=== PATIENT | male | born 1970 | race Caucasian/White ===

== ENCOUNTER → 2020-06-19 13:55 | Outpatient (BNVA) | payer MEDICAID, SELFPAY | PROVIDERS: PCP Family Medicine; Referring Provider Family Medicine; Visit Provider Nurse Practitioner Family | DX: Z01.818 Encounter for other preprocedural examination (principal) | CPT/HCPCS: 99203 ==

== ENCOUNTER 2020-06-20 09:42 | Outpatient (REF) | payer MEDICAID, SELFPAY ==
--- NOTE | 2020-06-20 09:45 | MR_ITS ---
MR LUMBAR SPINE WITHOUT CONTRAST CLINICAL INFORMATION: Dorsalgia. COMPARISON: Lumbar spine radiographs 03/12/2020. TECHNIQUE: MRI of the lumbar spine was obtained using routine sequences without contrast. FINDINGS: This is a limited motion degraded MRI of the lumbar spine. Axial imaging is partially nondiagnostic given the degree of motion artifact. There are 5 nonrib-bearing lumbar-type vertebral bodies. Lumbar alignment is normal. The vertebral body heights are maintained. There is mild disc volume loss and there is disc desiccation at L4-L5. There is no bone marrow edema. There are no acute fractures. Conus terminates at the L1 level. There are no significant soft tissue findings. The L1-L2, L2-L3, L3-L4 disc contours appear normal on the sagittal series. No central canal stenosis and no foraminal stenosis at these levels. L4-L5: There is a diffuse annular disc bulge exhibiting a dorsal annular fissure that mildly narrows the central canal. Moderate bilateral facet arthropathy. Mild foraminal encroachment bilaterally. L5-S1: Small annular disc bulge and mild bilateral facet arthropathy. No central canal stenosis and no foraminal stenosis. IMPRESSION: Mild lumbar spondylosis. There is a dorsal annular fissure at L4-L5. Assessment is very limited by the degree of motion artifact. No severe central canal stenosis and no severe foraminal stenosis within the lumbar spine.
== END 2020-06-20 09:43 | disposition home or self-care (01) ==
LOC: HO.MRI 09:42
PROVIDERS: PCP Family Medicine; Visit Provider Family Medicine
DX: M54.9 Dorsalgia, unspecified (principal)
CPT/HCPCS: 72148

== ENCOUNTER → 2021-04-09 10:11 | Outpatient (REF) | payer MEDICAID, SELFPAY ==
--- NOTE | ~2021-04-09 | NM_ITS ---
EXAMINATION: THYROID UPTAKE AND SCAN CLINICAL INFORMATION: Thyrotoxicosis, new history. COMPARISON: No previous thyroid imaging studies are available for comparison. TECHNIQUE: Following the oral administration of 272 microcuries of I-123 sodium iodide, thyroid uptake was performed and expressed as a percentage of the administrated dose. Gamma scintillation camera images of the thyroid in the anterior and right and left anterior oblique views were obtained using a pinhole collimator following the administration of 10 mCi Tc-99m pertechnetate. FINDINGS: The uptake is 67.4% at 2 hours and 73.7% at 24 hours (Normal radioiodine uptake at 24 hours is 10% to 30%). The radioiodine uptake is markedly elevated. The radiopertechnetate thyroid scintigram shows the thyroid gland to be moderately enlarged, approximately 3-4 times normal in size. There is very homogeneous distribution of activity within the gland. The trapping function is markedly increased diffusely. A very faint pyramidal lobe is visualized in attaching to the mid right lobe. No focal abnormalities are noted. A single anterior radioiodine image obtained at the time of the 24-hour uptake measurement is similar to the radio pertechnetate image. NM/NM thyroid w uptake IMPRESSION: Moderately enlarged diffuse toxic goiter of Graves' disease. Markedly elevated radioiodine uptake. No nodules are visualized.
== END ==
LOC: HO.NUCMED 10:11
PROVIDERS: PCP Family Medicine; Visit Provider Family Medicine
DX: E05.90 Thyrotoxicosis, unspecified without thyrotoxic crisis or storm (principal)
CPT/HCPCS: 78014; A9516

== ENCOUNTER 2021-06-16 15:36 | Outpatient (REF) | payer MEDICAID, SELFPAY | END 2021-06-16 15:37 | disposition home or self-care (01) | LOC: HO.LAB 15:36 | PROVIDERS: Visit Provider Internal Medicine | DX: Z20.822 Contact with and (suspected) exposure to COVID-19 (principal) | CPT/HCPCS: C9803; U0003; U0005 ==

== ENCOUNTER 2022-01-12 21:30 | Emergency (ER) | payer MEDICAID, SELFPAY ==
--- NOTE | 2022-01-12 | ECG_ITS ---
Test Reason : CHEST PAIN Blood Pressure : / mmHG Vent. Rate : 056 BPM Atrial Rate : 056 BPM P-R Int : 144 ms QRS Dur : 082 ms QT Int : 416 ms P-R-T Axes : 057 -13 036 degrees QTc Int : 401 ms Sinus bradycardia with sinus arrhythmia Otherwise normal ECG No previous ECGs available Referred By: Generic ED Physician Electronically Signed By:TIM SRIVASTAVA MD
[2022-01-12 21:54] VITALS: BP 171/84; PULSE 61; RESP 16; TEMP 36.6; O2SAT 97; BMI 23.0
[2022-01-12 23:14] LABS: MANUAL DIFF FLAG NO
[2022-01-12 23:16] LABS: Basophils Absolute Auto 0.1 X10*3/uL (0.0-0.2); Basophils Percent Auto 0.7 % (0-2); Eosinophils Absolute Auto 0.3 X10*3/uL (0.0-0.4); Eosinophils Percent Auto 2.2 % (0-4); Hematocrit 45.9 % (42.0-52.0); Imm Gran Abs Auto 0.03 X10*3/uL (0.00-0.03); Imm Gran Pct Auto 0.3 % (0.0-0.4); Lymphocytes Absolute Auto 3.4 X10*3/uL (1.2-4.9); Lymphocytes Percent Auto 29.7 % (20-40); Mean Corpuscular HGB Conc 32.7 g/dl (31.0-36.0); Mean Corpuscular Hemoglobin 29.8 pg (27.0-33.0); Mean Corpuscular Volume 91.3 fL (80.0-98.0); Mean Platelet Volume 8.8 fL (9.4-12.4); Monocytes Absolute Auto 0.9 X10*3/uL (0.1-1.2); Monocytes Percent Auto 7.6 % (2-11); Neutrophils Absolute Auto 6.8 x10*3/uL (2.0-8.3); Neutrophils Percent Auto 59.5 % (45-73); Platelet Count 335 X10*3/uL (160-400); Red Blood Count 5.03 X10*6/uL (4.60-5.80); Red Cell Distribution Width 13.8 % (11.0-16.0); White Blood Count 11.5 X10*3/uL (4.8-10.8)
[2022-01-12 23:35] LABS: Alanine Aminotransferase 10 U/L (0-40); Albumin Level 3.8 g/dL (3.5-5.0); Alkaline Phosphatase 186 U/L (39-117); Anion Gap 13 (12-20); Aspartate Amino Transferase 17 U/L (5-37); Bilirubin Total 0.3 mg/dL (0.0-1.0); Blood Urea Nitrogen 18 mg/dL (9-16); Calcium 7.7 mg/dL (8.4-10.2); Carbon Dioxide 25 mmol/L (22-29); Chloride 105 mmol/L (96-108); Creatinine Clr Calc Pharmacy 69.6; Estimated Glomerular Filt Rate > 60; Glucose Random 94 mg/dL (60-115); Sodium 138 mmol/L (135-145); Total Protein 7.7 g/dL (6.5-8.0)
[2022-01-12 23:38] LABS: Troponin-I High Sensitivity < 3.5 ng/L (<3.5-35.0)
[2022-01-13] VITALS: BP 146/75; PULSE 56; RESP 15; O2SAT 98
--- NOTE | 2022-01-13 00:03 | ED_ITS ---
HPI - Chest Pain General Chief Complaint: Chest Pain Stated Complaint: Chest pain/High blood pressure Time Seen by Provider: 01/12/22 23:53 Source: patient Mode of arrival: ambulatory Limitations: no limitations History of Present Illness HPI narrative: Patient comes emergency room complaining of chest pain for 3 days. Patient states that he has been extremely anxious because his amlodipine was taken away, and now is taking propanolol a 3 times a day. This change was done because patient was diagnosed with hyperthyroidism. Patient states that his high blood pressure makes him extremely anxious and mixes high blood pressure go even higher. Patient denies shortness of breath. Related Data Home Medications Medication Instructions Recorded Confirmed methimazole 10 mg tablet 1 tab PO TID 01/13/22 01/13/22 multivitamin with folic acid 400 1 tab PO DAILY 01/13/22 01/13/22 mcg tablet (Daily-Laya (with folic acid)) propranolol 20 mg tablet 1 tab PO TID 01/13/22 01/13/22 Previous Rx's Medication Instructions Recorded famotidine 20 mg tablet (Acid 20 mg PO BID #30 tab 06/19/20 Pipe Fitter Supervisor (famotidine)) hydrochlorothiazide 25 mg tablet 25 mg PO DAILY #30 tab 01/13/22 Allergies Allergy/AdvReac Type Severity Reaction Status Date / Time No Known Allergies Allergy Verified 06/19/20 14:31 Review of Systems Review of Systems: Constitutional : No Weight loss, No Fever, No Chills, No Night Sweats, No Fatigue, No Malaise ENT/Mouth : No Hearing loss, No Ear Pain, No Nasal Congestion, No Sinus Pain, No Hoarseness, No sore throat, No Rhinorrhea, No Swallowing Difficulty Eyes: No Eye Pain, No Swelling, No Redness, No Foreign Body, No Discharge, No Vision Changes Cardiovascular : Complaining of constant chest pain, mild for 3 days, nonradiating. Respiratory : No Cough, No Sputum, No Wheezing, No Smoke Exposure, No Dyspnea Gastrointestinal : No Nausea, No Vomiting, No Diarrhea, No Constipation, No abdominal Pain, No Hematochezia, No Melena Genitourinary : no irregular bleeding, No Dysuria, No Urinary Frequency, No Hematuria, No Urinary Incontinence, No Urgency, No Flank Pain, No Urinary Flow Changes, No Hesitancy Musculoskeletal : No joint pain, No Myalgias, No Joint Swelling Skin : No Skin Lesions, No rash Neuro : No Weakness, No Numbness, No Paresthesias, No Loss of Consciousness, No Dizziness, No Headache Psych : Complaining of worsening anxiety, No Depression, No SI/HI/AH/VH, No Social Issues, Heme/Lymph: No Bruising, No Bleeding,No Lymphadenopathy Endocrine : No Polyuria, No Polydipsia, No Temperature Intolerance PMF Past Medical History Medical History Acid reflux Back pain Hypertension Umbilical hernia Family History Family History (Updated 06/19/20 @ 13:59 by SARAH Negro) Mother No problems noted. Father History of throat cancer Social History Social History (Updated 06/19/20 @ 14:02 by SARAH Negro) Household Members Other:: sister Housing: House Alcohol intake: current Alcohol intake frequency: holidays/special occasions only Cigarettes Per Day: 10 Substance Use Type: Marijuana service: No Current occupational status: other Current occupation: injured at work Physical Exam Vital Signs: Vital Signs: Last Vital Signs Temp 97.8 F 01/12/22 21:54 Pulse 56 01/13/22 00:00 Resp 15 01/13/22 00:00 BP 146/75 H 01/13/22 00:00 Pulse Ox 98 01/13/22 00:00 BMI result Body Mass Index 23.0 Const: Other: Appearance: Alert. Oriented X3. No acute distress. Eyes: Pupils equal, round and reactive to light. ENT: Pharynx normal. Neck: Normal inspection. Neck supple. No lymph nodes noted. No crepitus CVS: Normal heart rate and rhythm. Pulses normal. Normal S1 and S2 Respiratory: No respiratory distress. Breath sounds normal. No Wheezing. No rales Abdomen: Soft and nontender. No rigidity. No distention. Skin: Skin warm and dry. Normal skin color. Normal skin turgor. Extremities: No lower extremity edema. No Lacerations. No Rash Neuro: Oriented X 3. No motor deficit. No sensory deficit. Moving all extremities. No slurred speech. CN 2 through 12 grossly intact Psych: calm, cooperative, normal affect Course Course Course Narrative: Patient's EKG within normal limits, troponin negative. Patient complaining of feeling anxious. On arrival, I from 1 hour before. Will recheck the blood pressure multiple times. Patient states that he would like to be started on blood pressure medication, since the propanolol is not working well for him. I discussed with the patient that at this time will not increase propranolol since his heart rate is in the high 50s low 60s. Instead we will start hydrochlorothiazide. On recheck, blood pressure 146/75. Discussed with patient to have close follow-up with his primary care physician for blood pressure recheck. MDM - Chest Pain Lab Data Result diagrams: 01/12/22 23:10 01/12/22 23:10 Labs: Lab Results 01/12/22 01/12/22 01/12/22 Range/Units 23:10 23:10 23:10 WBC 11.5 H (4.8-10.8) X10*3/uL RBC 5.03 (4.60-5.80) X10*6/uL Hgb 15.0 (14.0-18.0) g/dl Hct 45.9 (42.0-52.0) % MCV 91.3 (80.0-98.0) fL MCH 29.8 (27.0-33.0) pg MCHC 32.7 (31.0-36.0) g/dl RDW 13.8 (11.0-16.0) % Plt Count 335 (160-400) X10*3/uL MPV 8.8 L (9.4-12.4) fL Immature Gran % (Auto) 0.3 (0.0-0.4) % Neut % (Auto) 59.5 (45-73) % Lymph % (Auto) 29.7 (20-40) % [place] % (Auto) 7.6 (2-11) % Eos % (Auto) 2.2 (0-4) % Baso % (Auto) 0.7 (0-2) % Lymph # (Auto) 3.4 (1.2-4.9) X10*3/uL [place] # (Auto) 0.9 (0.1-1.2) X10*3/uL Eos # (Auto) 0.3 (0.0-0.4) X10*3/uL Baso # (Auto) 0.1 (0.0-0.2) X10*3/uL Abs Immat Gran (auto) 0.03 (0.00-0.03) X10*3/uL Absolute Neuts (auto) 6.8 (2.0-8.3) x10*3/uL Absolute Nucleated RBC 0.000 (0.0-0.012) X10*3/uL Nucleated RBC % (auto) 0.0 (0.0-0.2) /100WBC Sodium 138 (135-145) mmol/L Potassium 5.0 (3.3-5.1) mmol/L Chloride 105 (96-108) mmol/L Carbon Dioxide 25 (22-29) mmol/L Anion Gap 13 (12-20) BUN 18 H (9-16) mg/dL Creatinine 1.16 (0.5-1.4) mg/dL Estim Creat Clear Calc 69.6 Estimated GFR > 60 Random Glucose 94 (60-115) mg/dL Calcium 7.7 L (8.4-10.2) mg/dL Total Bilirubin 0.3 (0.0-1.0) mg/dL AST 17 (5-37) U/L ALT 10 (0-40) U/L Alkaline Phosphatase 186 H (39-117) U/L Troponin I High Sens < 3.5 (<3.5-35.0) ng/L Total Protein 7.7 (6.5-8.0) g/dL Albumin 3.8 (3.5-5.0) g/dL Discharge Plan Discharge Clinical Impression: Hypertension, Atypical chest pain Patient Disposition: Home, Self-Care Instructions: Chest Pain (ED), Hypertension (ED) Prescriptions: New hydrochlorothiazide 25 mg tablet 25 mg PO DAILY Qty: 30 0RF No Action methimazole 10 mg tablet 1 tab PO TID 0RF propranolol 20 mg tablet 1 tab PO TID 0RF multivitamin with folic acid [Daily-Laya (with folic acid)] 400 mcg tablet 1 tab PO DAILY 0RF famotidine [Acid Pipe Fitter Supervisor (famotidine)] 20 mg tablet 20 mg PO BID Qty: 30 0RF
[2022-01-13 00:06] VITALS: PULSE 63
[2022-01-13 00:42] VITALS: BP 137/87
== END 2022-01-13 00:42 | disposition home or self-care (01) ==
LOC: HO.ED 01-13 00:32
PROVIDERS: Emergency Provider Emergency Medicine; PCP Family Medicine
DX: R07.89 Other chest pain (principal); I10 Essential (primary) hypertension; F17.210 Nicotine dependence, cigarettes, uncomplicated; Z71.6 Tobacco abuse counseling; Z79.899 Other long term (current) drug therapy
CPT/HCPCS: 36415; 80053; 84484; 85025; 93005; 99283; 99285

== ENCOUNTER 2022-01-31 18:07 | Emergency (ER) | payer MEDICAID, SELFPAY ==
--- NOTE | ~2022-01-31 | XR_ITS ---
EXAMINATION: XR CHEST CLINICAL INFORMATION: Left-sided chest pain COMPARISON: None TECHNIQUE: 2 views of the chest were obtained. FINDINGS: No significant abnormality is noted involving the heart, lungs, mediastinum, bony thorax or soft tissues. XR/XR chest 2V IMPRESSION: Unremarkable examination.
--- NOTE | ~2022-01-31 | CT_ITS ---
EXAMINATION: CT ANGIOGRAM OF THE CHEST WITH AND WITHOUT CONTRAST (CT PULMONARY ANGIOGRAM FOR PE) CLINICAL INFORMATION: Sudden onset left-sided pleuritic pain. COMPARISON: Chest radiograph done earlier today. TECHNIQUE: Prior to contrast administration, noncontrast localization images were obtained. Subsequently, multidetector volumetric imaging was performed from the thoracic inlet to below the diaphragms following the administration of 75 mL Omnipaque 350 intravenous contrast. No contrast reaction reported Sagittal, coronal, and MIP oblique sagittal reformatted images were obtained on the CT workstation, uploaded to PACS, and reviewed. This CT examination was performed using dose optimization techniques as appropriate, variously including the following: *Automated exposure control *Adjustment of mA and/or kV according to patient size (this includes techniques or standardized protocols for targeted exams where dose is matched to indication/reason for exam; i.e. extremities or head) *Use of iterative reconstruction technique Total exam dose-length product 234 mGy-cm FINDINGS: QUALITY OF STUDY/CONTRAST BOLUS: Satisfactory. PULMONARY ARTERIES: No central pulmonary emboli. Evaluation of segmental branches in the lower lobes is somewhat limited due to respiratory motion. However, accounting for these limitations, no discrete filling defect is identified. THORACIC AORTA: No aneurysm or dissection. LUNG: Evaluation of small pulmonary nodules is suboptimal due to respiratory motion. There is mild bronchial wall thickening and mosaic attenuation of the lung parenchyma, which is more apparent in the dependent lungs. There is a focal groundglass opacity anteriorly in the left upper lobe (7:151). No dense consolidation. The central airways are patent. There are small subpleural blebs in the right greater than left lung apices. PLEURA: No pleural effusion or pneumothorax. MEDIASTINUM: Normal heart size. No pericardial effusion. No evidence of septal bowing or right heart strain. Mediastinal and hilar lymphadenopathy. For example, a 2 x 1.6 cm prevascular lymph node (7:162), and a 1.1 x 1.1 cm right hilar lymph node (7:193). The thyroid gland is slightly heterogeneous and enlarged. CHEST WALL/AXILLA: No axillary or internal mammary lymphadenopathy. OSSEOUS STRUCTURES: No acute or suspicious osseous abnormality. UPPER ABDOMEN: A too small to characterize hypodensity in the hepatic dome (5:42) is statistically likely to represent a simple cyst. No reflux of contrast into the hepatic veins to suggest elevated right heart pressures. CT/CT angio chest PE protocol IMPRESSION: No evidence of pulmonary embolism with the caveat that evaluation of segmental branches in the lower lobes is somewhat limited due to respiratory motion. No findings to suggest elevated right-sided heart pressures. Focal groundglass opacities anteriorly in the left upper lobe are nonspecific and could be a manifestation of an atypical infectious process in the appropriate clinical setting. There is also mild diffuse bronchial wall thickening suggesting small airways disease. Nonspecific mediastinal and hilar lymphadenopathy. The thyroid gland is slightly heterogeneous and enlarged. Correlation with a nonemergent thyroid ultrasound is recommended. VTE: negative
--- NOTE | 2022-01-31 18:17 | ECG_ITS ---
Test Reason : CHEST PAIN Blood Pressure : / mmHG Vent. Rate : 070 BPM Atrial Rate : 070 BPM P-R Int : 134 ms QRS Dur : 080 ms QT Int : 380 ms P-R-T Axes : 046 -02 015 degrees QTc Int : 410 ms Normal sinus rhythm Cannot rule out Inferior infarct , age undetermined Abnormal ECG When compared with ECG of 12-JAN-2022 22:04, No significant change was found Referred By: Generic ED Physician Electronically Signed By:Narciso Price
[2022-01-31 18:19] VITALS: BP 140/78; PULSE 85; O2SAT 99
[2022-01-31 18:20] VITALS: BP 161/83; PULSE 78; RESP 20; TEMP 36.8; O2SAT 96
[2022-01-31 19:05] VITALS: BP 139/72; PULSE 80; RESP 18; TEMP 36.6; O2SAT 97; BMI 23.1
[2022-01-31 19:27] LABS: MANUAL DIFF FLAG NO
--- NOTE | 2022-01-31 19:39 | ED.CHESTPAIN ---
HPI - Chest Pain General Chief Complaint: Chest Pain Stated Complaint: chest pain Time Seen by Provider: 01/31/22 19:22 Source: patient Mode of arrival: ambulatory Limitations: no limitations History of Present Illness HPI narrative: 51-year-old male who presents emergency department for evaluation of sudden onset of left-sided chest pain. The patient states that he was painting the ceiling/wall edge for approximately 1 hour. He states that he was holding a 3 lb pain but gait in his left hand while he was painting. He took a break to get some food. He went downstairs. He then developed sudden onset of left-sided chest pain. He points to his left chest and left axilla. He states that the pain is a sharp/stabbing pain which is worse with breathing and with movement. He states that he has to hold his left chest in order to help with pain. The pain does not radiate to his neck, jaw or down his arm. He states the pain is 12/10 at its worst. He did feel lightheaded and dizzy and diaphoretic. He called an ambulance and was given 324 mg of aspirin to chew in route. He states that 2 days prior he had a subjective fever. He denied chills, rhinorrhea, sore throat, cough. He has noted some dyspnea on exertion over the past couple days. He denied nausea, vomiting, diarrhea, changes bowel movements. The patient was seen on 01/13/2022 with 3 days of similar chest pain and had a negative workup in the emergency department. MD complaint: chest pain Onset (ago): hour(s) (1) Timing of current episode: constant Prior episodes: Yes Onset: during rest Pain location: left chest (Left axilla) Pain radiation: none Severity: severe Pain scale (0-10): 12 Quality: sharp (Stabbing) Relieving factors: nothing Exacerbating factors: inspiration and movement Associated symptoms: diaphoresis and other (Dizziness) Treatment prior to arrival: aspirin (324 mg) Risk Factors Coronary artery disease risk factors: smoking history Related Data Home Medications Medication Instructions Recorded Confirmed methimazole 10 mg tablet 1 tab PO TID 01/13/22 01/13/22 multivitamin with folic acid 400 1 tab PO DAILY 01/13/22 01/13/22 mcg tablet (Daily-Laya (with folic acid)) propranolol 20 mg tablet 1 tab PO TID 01/13/22 01/13/22 Previous Rx's Medication Instructions Recorded famotidine 20 mg tablet (Acid 20 mg PO BID #30 tab 06/19/20 Zipper Trimmer Hand (famotidine)) hydrochlorothiazide 25 mg tablet 25 mg PO DAILY #30 tab 01/13/22 azithromycin 250 mg tablet See Rx Instructions .ROUTE 02/01/22 (Zithromax Z-Liborio) .COMPLEX #6 tab Allergies Allergy/AdvReac Type Severity Reaction Status Date / Time No Known Allergies Allergy Verified 06/19/20 14:31 Review of Systems Review of Systems: Yes all other systems are reviewed and are negative [facility] Past Medical History [facility] Narrative: Social history: The patient smokes 10 cigarettes per day times 26 years. He occasionally drinks alcohol. He smokes marijuana daily. Medical History Acid reflux Back pain Hypertension Umbilical hernia Family History Family History Mother No problems noted. Father History of throat cancer Social History Social History Household Members Other:: sister Housing: House Alcohol intake: current Alcohol intake frequency: a few times a week Alcohol type: beer Patient Tobacco Use Status: Current everyday Tobacco user Cigarettes Per Day: 10 Use of substances other than those prescribed or required for medical reasons: Yes Substance Use Type: Marijuana Substance Use Frequency: Daily Last Used Substance: Unknown Advance Directives: No service: No Current occupational status: other Current occupation: injured at work Physical Exam Vital Signs: Vital Signs: Last Vital Signs Temp 97.8 F 01/31/22 22:00 Pulse 95 01/31/22 22:00 Resp 15 01/31/22 22:32 BP 142/51 H 01/31/22 22:00 Pulse Ox 98 01/31/22 22:00 BMI result Body Mass Index 23.1 Const: Other: Awake, alert, male patient, he does appear to be anxious, is holding his left chest with his right hand, he is pleasant, cooperative, answers all questions appropriately HEENT: Head: Yes normal to inspection, Yes normocephalic and Yes atraumatic Ears: external ears normal General nose exam: Normal external nose present Face and sinus: Yes normal facial exam Mouth: Normal oral and palatal mucosa present Throat: Yes posterior oropharynx normal Eyes: General: appearance normal, both eyes and all related structures Pupils: Equal, round and reactive pupils present Neck: Neck: Yes normal visual inspection, Yes no lymphadenopathy, Yes trachea midline and Yes supple Chest: Chest palpation & inspection: normal inspection of the chest and tenderness (Moderate left chest wall tenderness) Resp: Effort & Inspection: normal respiratory effort and able to speak in complete sentences Auscultation: clear to auscultation bilaterally Cardio: Rate: regular rate Rhythm: regular rhythm Heart sounds: S1 normal heart sound present, S2 normal heart sound present and no murmurs GI: Inspection: Yes normal to inspection Palpation (GI): Soft to palpation, nontender and no guarding Auscultation: normal bowel sounds : General: Yes no CVA tenderness Back/Spine/Pelvis: Back: no CVA tenderness Skin: General skin exam: no rashes or lesions noted Neuro: Cranial nerves: Yes CN's II-XII intact bilaterally and Yes Equal, round and reactive pupils present Cognition (Neuro): normal cognition Motor exam (neuro): 5/5 motor strength present throughout Extrem: General: Yes normal to inspection Psych: Appearance: grossly normal Speech and movement: Normal speech and movement present Affect: normal affect Attitude: cooperative Thought process: Normal thought process present Thought content: Normal thought content present Course Course Course Narrative: 51-year-old male who presents emergency department for evaluation of sudden onset of left-sided chest pain which occurred approximately 1 hour prior to coming to the emergency department, the pain is a constant, sharp/stabbing pain which is 12/10, worse with movement and with breathing. Patient had similar pain on 01/13/2022 and was seen in the emergency department and had a negative workup. Vital signs initially revealed an elevated blood pressure of 161/82, this improved to 130 9/72 without treatment. Vital signs were otherwise unremarkable. Physical examination did reveal left-sided chest wall tenderness. Laboratory evaluation including CBC, CMP, PT/INR, PTT, D-dimer, chest x-ray and EKG. 2006: Laboratory evaluation: CBC was unremarkable, CMP did reveal an elevated alk-phos of 146 otherwise unremarkable. High sensitivity troponin I was below detectable limits. Twelve EKG was unremarkable. 214: The patient's D-dimer was elevated at 476. Chest x-ray was unremarkable. Given his sudden onset of pleuritic chest pain in the elevated D-dimer I will order a CT pulmonary angiogram PE protocol. Patient states his pain is only improved 8/10 therefore he is ordered to get morphine 4 mg IV and Zofran 4 mg IV. We also ordered normal saline x1 L. 2359: The CT pulmonary angiogram PE protocol did not reveal any pulmonary embolism. The patient does have question of focal ground-glass infiltrates in the left upper lobe possibly consistent with atypical pneumonia. Given this finding patient was Zithromax Z-Liborio his 1st dose here in the emergency department. The patient was given printed and verbal instructions discharged home. MDM - Chest Pain Lab Data Attestation: I reviewed the patient's lab results. Result diagrams: 01/31/22 19:19 01/31/22 19:19 Labs: Lab Results 01/31/22 01/31/22 01/31/22 Range/Units 19:19 19:19 19:19 WBC 12.0 H (4.8-10.8) X10*3/uL RBC 4.78 (4.60-5.80) X10*6/uL Hgb 14.3 (14.0-18.0) g/dl Hct 42.9 (42.0-52.0) % MCV 89.7 (80.0-98.0) fL MCH 29.9 (27.0-33.0) pg MCHC 33.3 (31.0-36.0) g/dl RDW 13.1 (11.0-16.0) % Plt Count 402 H (160-400) X10*3/uL MPV 8.9 L (9.4-12.4) fL Immature Gran % (Auto) 0.3 (0.0-0.4) % Neut % (Auto) 68.5 (45-73) % Lymph % (Auto) 22.1 (20-40) % [place] % (Auto) 6.8 (2-11) % Eos % (Auto) 2.0 (0-4) % Baso % (Auto) 0.3 (0-2) % Lymph # (Auto) 2.7 (1.2-4.9) X10*3/uL [place] # (Auto) 0.8 (0.1-1.2) X10*3/uL Eos # (Auto) 0.2 (0.0-0.4) X10*3/uL Baso # (Auto) 0.0 (0.0-0.2) X10*3/uL Abs Immat Gran (auto) 0.04 H (0.00-0.03) X10*3/uL Absolute Neuts (auto) 8.2 (2.0-8.3) x10*3/uL Absolute Nucleated RBC 0.000 (0.0-0.012) X10*3/uL Nucleated RBC % (auto) 0.0 (0.0-0.2) /100WBC PT (9.9-13.0) SEC INR (0.9-1.1) APTT (24.1-38.0) SEC D-Dimer High Sensitivty NG/ML Sodium 139 (135-145) mmol/L Potassium 4.2 (3.3-5.1) mmol/L Chloride 106 (96-108) mmol/L Carbon Dioxide 23 (22-29) mmol/L Anion Gap 14 (12-20) BUN 14 (9-16) mg/dL Creatinine 0.96 (0.5-1.4) mg/dL Estim Creat Clear Calc 84.1 Estimated GFR > 60 Random Glucose 91 (60-115) mg/dL Calcium 8.4 D (8.4-10.2) mg/dL Total Bilirubin 0.3 (0.0-1.0) mg/dL AST 15 (5-37) U/L ALT 11 (0-40) U/L Alkaline Phosphatase 146 H D (39-117) U/L Troponin I High Sens < 3.5 (<3.5-35.0) ng/L Total Protein 7.6 (6.5-8.0) g/dL Albumin 3.8 (3.5-5.0) g/dL 01/31/22 Range/Units 20:06 WBC (4.8-10.8) X10*3/uL RBC (4.60-5.80) X10*6/uL Hgb (14.0-18.0) g/dl Hct (42.0-52.0) % MCV (80.0-98.0) fL MCH (27.0-33.0) pg MCHC (31.0-36.0) g/dl RDW (11.0-16.0) % Plt Count (160-400) X10*3/uL MPV (9.4-12.4) fL Immature Gran % (Auto) (0.0-0.4) % Neut % (Auto) (45-73) % Lymph % (Auto) (20-40) % [place] % (Auto) (2-11) % Eos % (Auto) (0-4) % Baso % (Auto) (0-2) % Lymph # (Auto) (1.2-4.9) X10*3/uL [place] # (Auto) (0.1-1.2) X10*3/uL Eos # (Auto) (0.0-0.4) X10*3/uL Baso # (Auto) (0.0-0.2) X10*3/uL Abs Immat Gran (auto) (0.00-0.03) X10*3/uL Absolute Neuts (auto) (2.0-8.3) x10*3/uL Absolute Nucleated RBC (0.0-0.012) X10*3/uL Nucleated RBC % (auto) (0.0-0.2) /100WBC PT 12.6 (9.9-13.0) SEC INR 1.1 (0.9-1.1) APTT 33.3 (24.1-38.0) SEC D-Dimer High Sensitivty 476 NG/ML Sodium (135-145) mmol/L Potassium (3.3-5.1) mmol/L Chloride (96-108) mmol/L Carbon Dioxide (22-29) mmol/L Anion Gap (12-20) BUN (9-16) mg/dL Creatinine (0.5-1.4) mg/dL Estim Creat Clear Calc Estimated GFR Random Glucose (60-115) mg/dL Calcium (8.4-10.2) mg/dL Total Bilirubin (0.0-1.0) mg/dL AST (5-37) U/L ALT (0-40) U/L Alkaline Phosphatase (39-117) U/L Troponin I High Sens (<3.5-35.0) ng/L Total Protein (6.5-8.0) g/dL Albumin (3.5-5.0) g/dL ECG Data ECG #1: Attestation: I personally reviewed and interpreted this ECG as follows: Interpretation: 1810: Normal sinus rhythm rate of 70, normal OR interval, QRS duration and QTC interval, no ST segment elevation, no ST segment depression, no Q-waves, no PACs, no PVCs Discharge Plan Discharge Clinical Impression: Chest pain, pleuritic, Pneumonia Patient Disposition: Home, Self-Care Additional Instructions: Your blood work was unremarkable. Your EKG was normal. The CT scan your chest with IV contrast did not reveal any blood clots in your lungs which is reassuring. You may have an early pneumonia in the left side of your lung and this could explain your pain. Take ibuprofen 200 mg pills, 3 pills every 6 hours as needed for pain. Take Tylenol (acetaminophen) 500 mg pills, 2 pills every 4 to 6 hours as needed for pain. Take Zithromax (azithromycin) Z-Liboiro as prescribed. Day 1 take 2 pills, each day after that take 1 pill for total of 5 days. This medication states in your system for 7-10 days and continues to work despite only taking it for 5 days. Follow-up with your doctor in 2 days. Please return to the emergency department if your symptoms get worse or if you develop any symptoms that are concerning to you. Prescriptions: New azithromycin [Zithromax Z-Liborio] 250 mg tablet See Rx Instructions .ROUTE .COMPLEX Qty: 6 0RF Rx Instructions: take 500 mg today (day 1), then 250 mg for 4 days (days 2-5) No Action methimazole 10 mg tablet 1 tab PO TID 0RF propranolol 20 mg tablet 1 tab PO TID 0RF multivitamin with folic acid [Daily-Laya (with folic acid)] 400 mcg tablet 1 tab PO DAILY 0RF hydrochlorothiazide 25 mg tablet 25 mg PO DAILY Qty: 30 0RF famotidine [Acid Zipper Trimmer Hand (famotidine)] 20 mg tablet 20 mg PO BID Qty: 30 0RF
[2022-01-31 19:40] LABS: Basophils Percent Auto 0.3 % (0-2); Eosinophils Absolute Auto 0.2 X10*3/uL (0.0-0.4); Hematocrit 42.9 % (42.0-52.0); Hemoglobin 14.3 g/dl (14.0-18.0); Imm Gran Abs Auto 0.04 X10*3/uL (0.00-0.03); Imm Gran Pct Auto 0.3 % (0.0-0.4); Lymphocytes Absolute Auto 2.7 X10*3/uL (1.2-4.9); Lymphocytes Percent Auto 22.1 % (20-40); Mean Corpuscular HGB Conc 33.3 g/dl (31.0-36.0); Mean Corpuscular Hemoglobin 29.9 pg (27.0-33.0); Mean Corpuscular Volume 89.7 fL (80.0-98.0); Mean Platelet Volume 8.9 fL (9.4-12.4); Monocytes Absolute Auto 0.8 X10*3/uL (0.1-1.2); Monocytes Percent Auto 6.8 % (2-11); Neutrophils Absolute Auto 8.2 x10*3/uL (2.0-8.3); Neutrophils Percent Auto 68.5 % (45-73); Platelet Count 402 X10*3/uL (160-400); Red Blood Count 4.78 X10*6/uL (4.60-5.80); Red Cell Distribution Width 13.1 % (11.0-16.0)
[2022-01-31 19:42] LABS: Alanine Aminotransferase 11 U/L (0-40); Albumin Level 3.8 g/dL (3.5-5.0); Alkaline Phosphatase 146 U/L (39-117); Anion Gap 14 (12-20); Aspartate Amino Transferase 15 U/L (5-37); Bilirubin Total 0.3 mg/dL (0.0-1.0); Blood Urea Nitrogen 14 mg/dL (9-16); Calcium 8.4 mg/dL (8.4-10.2); Carbon Dioxide 23 mmol/L (22-29); Chloride 106 mmol/L (96-108); Creatinine Clr Calc Pharmacy 84.1; Estimated Glomerular Filt Rate > 60; Glucose Random 91 mg/dL (60-115); Potassium 4.2 mmol/L (3.3-5.1); Sodium 139 mmol/L (135-145); Total Protein 7.6 g/dL (6.5-8.0)
[2022-01-31 19:46] LABS: Troponin-I High Sensitivity < 3.5 ng/L (<3.5-35.0)
[2022-01-31 19:57] VITALS: BP 145/83; PULSE 95; RESP 17; O2SAT 98
[2022-01-31] MEDS: Ketorolac Tromethamine 15 MG/ML VIAL IVPUSH (19:58)
[2022-01-31] MEDS: LORazepam 2 MG/ML VIAL 1 MG IVPUSH (19:58)
[2022-01-31 20:26] LABS: INTERNATIONAL NORM RATIO 1.1 (0.9-1.1); Prothrombin Time 12.6 SEC (9.9-13.0)
[2022-01-31 20:28] LABS: D Dimer High Sensitivity 476 NG/ML
[2022-01-31 20:29] LABS: Partial Thromboplastin Time 33.3 SEC (24.1-38.0)
[2022-01-31 22:00] VITALS: BP 142/51; PULSE 95; RESP 17; TEMP 36.6; O2SAT 98
[2022-01-31] MEDS: iohexoL 350 MG/ML 100 ML INFUS..BTL IV (22:05)
[2022-01-31 22:32] VITALS: RESP 15
[2022-01-31] MEDS: Morphine Sulfate 4 MG/ML CARTRIDGE IVPUSH (22:32)
[2022-01-31] MEDS: 0.9 % Sodium Chloride 1,000 ML 999 ML IV (22:33)
[2022-01-31] MEDS: ondansetron HCL 4 MG/2 ML VIAL IVPUSH (22:33)
== END 2022-02-01 00:24 | disposition home or self-care (01) ==
PROVIDERS: Emergency Provider Emergency Medicine Emergency Medical Services; PCP Family Medicine
DX: J18.9 Pneumonia, unspecified organism (principal); R07.89 Other chest pain; R42 Dizziness and giddiness; F17.210 Nicotine dependence, cigarettes, uncomplicated; Z71.6 Tobacco abuse counseling; F12.90 Cannabis use, unspecified, uncomplicated; Z79.899 Other long term (current) drug therapy
CPT/HCPCS: 36415; 71046; 71275; 80053; 84484; 85025; 85379; 85610; 85730; 93005; 96360; 96375; 99284; 99285; J1885; J2060; J2270; J2405; Q9967

== ENCOUNTER 2022-08-05 08:32 | Outpatient (REF) | payer MEDICAID, SELFPAY ==
--- NOTE | ~2022-08-05 | XR_ITS ---
EXAMINATION: XR CHEST CLINICAL INFORMATION: History of pneumonia last month, crampy pain left lower lobe region COMPARISON: January 2022. TECHNIQUE: 2 views of the chest were obtained. FINDINGS: No new airspace consolidation or pleural effusions. Pulmonary vascularity appears to be stable. There is a mild increase in soft tissue prominence in the AP window. Adenopathy is considered. XR/XR chest 2V IMPRESSION: No new airspace infiltrates or pleural effusions. Mild increased soft tissue prominence in the AP window,with adenopathy considered. CT evaluation of the chest with IV contrast enhancement could be helpful toward further clarification.
== END 2022-08-05 08:33 | disposition home or self-care (01) ==
LOC: HO.XRAY 08:32
PROVIDERS: PCP Family Medicine; Visit Provider Family Medicine
DX: R91.8 Other nonspecific abnormal finding of lung field (principal)
CPT/HCPCS: 71046

== ENCOUNTER 2022-08-13 14:50 | Outpatient (REF) | payer MEDICAID, SELFPAY ==
--- NOTE | ~2022-08-13 | XR_ITS ---
EXAMINATION: XR CHEST CLINICAL INFORMATION: History recent pneumonia. Adenopathy. COMPARISON: Chest radiographs 08/05/2022, CTA chest 01/31/2022 TECHNIQUE: 2 views of the chest were obtained. FINDINGS: There is no airspace consolidation or definite groundglass opacity. The costophrenic sulci are clear. The heart is normal in size and the vascularity is normal. Adenopathy at the aorticopulmonary window is slightly decreased from chest radiographs. The hilar contours appear normal. No acute bony abnormality. XR/XR chest 2V IMPRESSION: 1. No airspace consolidation or definite groundglass opacity. No effusion. 2. Adenopathy at left AP window is slightly decreased from prior chest radiograph 08/05/2022.
== END 2022-08-13 14:51 | disposition home or self-care (01) ==
LOC: HO.XRAY 14:50
PROVIDERS: PCP Family Medicine; Visit Provider Family Medicine
DX: R91.8 Other nonspecific abnormal finding of lung field (principal)
CPT/HCPCS: 71046

== ENCOUNTER 2024-03-14 13:06 | Emergency (ER) | payer MEDICAID, SELFPAY ==
--- NOTE | ~2024-03-14 | XR_ITS ---
EXAMINATION: XR CHEST 2 VIEW CLINICAL INFORMATION: Difficulty breathing COMPARISON: 08/13/2022 TECHNIQUE: PA and lateral views of the chest obtained. FINDINGS: The lungs are clear. There are no pleural effusions. The cardiomediastinal silhouette is normal. XR/XR chest 2V IMPRESSION: No acute cardiopulmonary disease or interval change.
--- NOTE | ~2024-03-14 | CT_ITS ---
EXAMINATION: CT SOFT TISSUE NECK WITH CONTRAST CLINICAL INFORMATION: Right-sided abdominal pain and swelling. COMPARISON: None available. TECHNIQUE: Following the intravenous administration of 60 mL of Omnipaque 350 intravenous contrast, helical imaging was performed in the axial plane with generation of coronal and sagittal reformatted images. This CT examination was performed using dose optimization techniques as appropriate, variously including the following: *Automated exposure control *Adjustment of mA and/or kV according to patient size (this includes techniques or standardized protocols for targeted exams where dose is matched to indication/reason for exam; i.e. extremities or head) *Use of iterative reconstruction technique DLP: 304 mGy-cm FINDINGS: Visualized brain parenchyma is normal. The orbits are bilaterally symmetrical and normal. The paranasal sinuses are well-aerated. There is bilateral enlarged tonsils right greater than left but no peritonsillar fluid collection or abscess seen. There is right peritonsillar and posterior retropharyngeal edema The exam is slightly limited secondary to beam hardening artifact from oral dental fillings. There there are reactive lymph nodes in bilateral neck the largest right carotid/jugular lymph node measures 1.2 x 2.0 cm axial image 63/2. Bilateral submandibular and parotid glands are symmetrical and normal. The parapharyngeal soft tissues are normal. Visualized nasopharyngeal, oropharyngeal and pharyngeal airway is widely patent. Bilateral thyroid lobes are symmetrical and enlarged. Bilateral carotid arteries and jugular vein are patent. The lung apices are clear. There are prominent small lymph nodes in the superior mediastinum. CT/CT soft tissue neck w IV con IMPRESSION: Bilateral enlarged tonsils right greater than left but no peritonsillar abscess,. There is right peritonsillar and prevertebral soft tissue edema. Bilateral enlarged neck lymph nodes suggestive of post inflammatory changes. The airway is widely patent
[2024-03-14 13:52] VITALS: BP 147/94; PULSE 111; RESP 20; TEMP 36.6; O2SAT 98; BMI 21.7
--- NOTE | 2024-03-14 13:54 | ECG_ITS ---
Test Reason : SOB Blood Pressure : / mmHG Vent. Rate : 115 BPM Atrial Rate : 115 BPM P-R Int : 142 ms QRS Dur : 084 ms QT Int : 312 ms P-R-T Axes : 083 024 051 degrees QTc Int : 431 ms Sinus tachycardia Otherwise normal ECG When compared with ECG of 31-JAN-2022 18:11, Vent. rate has increased BY 45 BPM Minimal criteria for Inferior infarct are no longer Present Referred By: Tk Garcia Electronically Signed By:Narciso Price
--- NOTE | 2024-03-14 13:54 | ED_ITS ---
HPI - General Adult General Chief complaint: Dyspnea Stated complaint: swollen neck and diff breathing Time Seen by Provider: 03/14/24 19:07 History of Present Illness ED Provider: Alison MERINO narrative: The patient is a 53-year-old male who has not been feeling well for about a week. He says he has had shortness of breath during the last week. He also says that several days ago he passed out unexpectedly while walking. This was when he was walking in the heat. He also feels that he has had some swelling on the right side of his neck and jaw. He continues to have pain in the left side of his chest that is worse with breathing and coughing. He does not know if he has had a fever. Patient reports a history of hyperthyroidism for which he is on methimazole. Related Data Home Medications ?Medication ?Instructions ?Recorded ?Confirmed methimazole 10 mg tablet 1 tab PO TID 01/13/22 01/13/22 multivitamin with folic acid 400 1 tab PO DAILY 01/13/22 01/13/22 mcg tablet (Daily-Laya (with folic acid)) propranolol 20 mg tablet 1 tab PO TID 01/13/22 01/13/22 Previous Rx's ?Medication ?Instructions ?Recorded famotidine 20 mg tablet (Acid 20 mg PO BID #30 tabs 06/19/20 Barrel Lathe Operator Outside (famotidine)) hydrochlorothiazide 25 mg tablet 25 mg PO DAILY #30 tabs 01/13/22 azithromycin 250 mg tablet See Rx Instructions PO .COMPLEX #6 02/01/22 (Zithromax Z-Liborio) tabs amoxicillin 875 mg-potassium 1 tab PO BID 10 days #20 tabs 03/14/24 clavulanate 125 mg tablet Allergies Allergy/AdvReac Type Severity Reaction Status Date / Time No Known Allergies Allergy Verified 03/14/24 13:55 Review of Systems 2 Review of Systems: Yes all other systems are reviewed and are negative PMFSH Past Medical History Medical History Acid reflux Back pain Hypertension Umbilical hernia Family History Family History Mother No problems noted. Father History of throat cancer Social History Social History Household Members Other:: sister Housing: House Alcohol intake: current Alcohol intake frequency: a few times a week Alcohol type: beer Patient Tobacco Use Status: Current everyday Tobacco user Cigarettes Per Day: 10 Smoked in Last 30 Days: Yes Substance Use Type: Marijuana Advance Directives: No Advance Directives Information Provided: Yes service: No Current occupational status: other Current occupation: injured at work Physical Exam ED Vital Signs: Vital Signs - 24 hr 03/14/24 13:52 03/14/24 18:53 03/14/24 20:22 Temperature 97.8 F 98.5 F 98.3 F Pulse Rate 111 H 120 H 115 H Respiratory Rate 20 16 18 Blood Pressure 147/94 H 141/92 H 129/80 Pulse Oximetry 98 98 98 Oxygen Delivery Method Room Air Room Air Room Air 03/14/24 22:15 Temperature 97.5 F Pulse Rate 103 H Respiratory Rate 18 Blood Pressure 139/86 Pulse Oximetry 98 Oxygen Delivery Method Room Air BMI result Body Mass Index 21.7 Const Other: The patient is a 53-year-old man who was awake and alert. He has an anxious affect. He is unkempt. He looks chronically ill. HENMT Other: The patient has poor dentition. There is some mild erythema to the posterior pharynx with exudate on the right tonsil. There is no swelling of the soft palate. Eyes Other: Pupils are round equal, conjunctivae are clear Neck Other: The patient reports tenderness with palpation of the right side of the neck. This seems to be primarily at the right jugulodigastric lymph node. I do not really appreciate other swelling. Chest Other: No crepitus or subcutaneous emphysema. Resp Other: Breath sounds may be mildly diminished bilaterally. No martín wheezing or crackles or other obviously abnormal breath sounds. No significant asymmetry. Cardio Rate: regular rate Rhythm: regular rhythm Heart sounds: S1 normal heart sound present and S2 normal heart sound present GI Other: Abdomen is soft and nontender Skin Other: Skin is pale and dry. Neuro Other: The patient is awake and alert. He has a very anxious affect. Cranial nerves are grossly intact. He moves his extremities symmetrically and does not seem to have any focal neurological deficits. Extrem Other: The patient has mild pitting edema both lower legs. Course Course Course Narrative: RME, this is a rapid medical exam performed by Orlin Garcia please refer to primary provider for complete H&P- 53-year-old male presents for evaluation of chest pain, shortness of breath. He reports he feels that ball in the right side of his neck and he has right ear pain. His lungs are clear to auscultation on exam. Vital signs are stable. Plan for cardiac workup, chest x-ray and viral swabs Medications Administered Discontinued Medications Generic Name Dose Route Start Last Admin Trade Name Rocky PRN Reason Stop Dose Admin Amoxicillin/Clavulanate Potassium 875 mg 03/14/24 22:01 03/14/24 22:22 Amoxicillin/Potassium Clav 875 Mg Tablet PO 03/14/24 22:02 875 mg ONCE ONE Administration Sodium Chloride 1,000 mls @ 999 mls/hr 03/14/24 20:30 03/14/24 20:43 Ns IV 03/14/24 21:30 999 mls/hr .Q1H1M GISELA Administration Iohexol 60 ml 03/14/24 21:05 03/14/24 21:05 Iohexol 350 Mg/Ml 100 Ml Infus..Btl IV 03/14/24 21:06 60 ml ONCE ONE Administration Medical Decision Making Medical Decision Making [facility] Narrative: The patient is a 53-year-old male with a history of hyperthyroidism on methimazole who was also a smoker. Presents complaining of sore throat and right-sided neck pain. He also complains of an episode of fainting several days ago. An initial concern of mine was that he might have a pulmonary embolism. He was tachycardic been described left-sided pleuritic pain and had a syncopal episode a few days ago. However his D-dimer is normal and he later said that the pleuritic pain on the left side of his chest has actually been present since a previous diagnosis of a pneumonia about a year ago. Additionally I think that his tachycardia may be related to his hyperthyroidism. Patient does not appear short of breath. I therefore think with the normal D-dimer is probably sufficient to exclude a pulmonary embolism in this case. The patient is more acute complaint was neck pain. He had some tonsillar exudate. His strep test was negative. I obtained a CT of the soft tissues of the neck to ensure there was no unusual soft tissue infection. CT shows findings consistent with pharyngitis. Patient will be started on Augmentin. Patient was very eager to be discharged to because he was so hungry. He will follow up with his regular doctor, Dr. Lew. I have added on a TSH to his blood work at the time of his discharge. This subsequently came back as less than 0.01. Lab Data 03/14/24 14:14 03/14/24 14:14 Labs: Lab Results 03/14/24 03/14/24 Range/Units 14:14 19:28 WBC 13.6 H (4.8-10.8) X10*3/uL RBC 5.58 (4.60-5.80) X10*6/uL Hgb 15.8 (14.0-18.0) g/dl Hct 47.9 (42.0-52.0) % MCV 85.8 (80.0-98.0) fL MCH 28.3 (27.0-33.0) pg MCHC 33.0 (31.0-36.0) g/dl RDW 12.7 (11.0-16.0) % Plt Count 344 (160-400) X10*3/uL MPV 9.4 (9.4-12.4) fL Immature Gran % (Auto) 0.4 (0.0-0.4) % Neut % (Auto) 73.6 H (45-73) % Lymph % (Auto) 12.7 L (20-40) % [place] % (Auto) 13.0 H (2-11) % Eos % (Auto) 0.1 (0-4) % Baso % (Auto) 0.2 (0-2) % Lymph # (Auto) 1.7 (1.2-4.9) X10*3/uL [place] # (Auto) 1.8 H (0.1-1.2) X10*3/uL Eos # (Auto) 0.0 (0.0-0.4) X10*3/uL Baso # (Auto) 0.0 (0.0-0.2) X10*3/uL Abs Immat Gran (auto) 0.05 H (0.00-0.03) X10*3/uL Absolute Neuts (auto) 10.0 H (2.0-8.3) x10*3/uL Absolute Nucleated RBC 0.000 (0.0-0.012) X10*3/uL Nucleated RBC % (auto) 0.0 (0.0-0.2) /100WBC Smear Tech's Comments VERIFIED PT 14.6 H (11.1-13.3) SEC INR 1.2 H (0.9-1.1) D-Dimer High Sensitivty 193 NG/ML Sodium 139 (135-145) mmol/L Potassium 3.5 (3.3-5.1) mmol/L Chloride 104 (96-108) mmol/L Carbon Dioxide 22 (22-29) mmol/L Anion Gap 17 (12-20) BUN 14 (9-16) mg/dL Creatinine 0.90 (0.5-1.4) mg/dL Estim Creat Clear Calc 80.8 Estimated GFR > 60 Random Glucose 116 H (60-115) mg/dL Calcium 9.9 D (8.4-10.2) mg/dL Total Bilirubin 0.5 (0.0-1.0) mg/dL AST 18 (5-37) U/L ALT 13 (0-40) U/L Alkaline Phosphatase 92 (39-117) U/L Troponin I High Sens 3.9 (<3.5-35.0) ng/L C-Reactive Protein 10.54 H (< or = 0.50) mg/dL Total Protein 8.3 H (6.5-8.0) g/dL Albumin 3.8 (3.5-5.0) g/dL Lipase 25 (8-78) U/L TSH < 0.01 L (0.32-4.0) uIU/mL Influenza Type A (PCR) NEGATIVE (Negative) Influenza Type B (PCR) NEGATIVE (Negative) RSV RNA Qual (PCR) NEGATIVE (Negative) SARS-CoV-2 RNA (RT-PCR) NEGATIVE (Negative) S. pyogenes GrpA EDGARD Negative (Negative) Independent Interpretation I performed an independent interpretation of an: EKG Interpretation: EKG at 14:04 shows sinus tachycardia at 115 beats per minute. No acute ischemic changes. Discharge Plan Discharge Clinical Impression: Pharyngitis, Right-sided chest wall pain, Hyperthyroidism Patient Disposition: Home, Self-Care Additional Instructions: You have been started on an antibiotic for a throat infection. Please take this 2 times a day. Drink lot of fluids. Your heart rate is fairly fast today. I suspect this is probably related to your hyperthyroidism. I have added on a blood test to your blood work today. This test is a TSH level. Please plan on contacting Dr. Lew tomorrow to discuss your current symptoms and also to discuss your thyroid management. Please try to do your best to stop smoking. Return to the emergency room if you feel significantly worse. Prescriptions: New amoxicillin-pot clavulanate 875-125 mg tablet 1 tab PO BID 10 Days Qty: 20 0RF No Action methimazole 10 mg tablet 1 tab PO TID propranolol 20 mg tablet 1 tab PO TID multivitamin with folic acid [Daily-Laya (with folic acid)] 400 mcg tablet 1 tab PO DAILY hydrochlorothiazide 25 mg tablet 25 mg PO DAILY Qty: 30 0RF azithromycin [Zithromax Z-Liborio] 250 mg tablet See Rx Instructions .ROUTE .COMPLEX Qty: 6 0RF Rx Instructions: take 500 mg today (day 1), then 250 mg for 4 days (days 2-5) famotidine [Acid Barrel Lathe Operator Outside (famotidine)] 20 mg tablet 20 mg PO BID Qty: 30 0RF Interventions: ED Discharge Assessment Last Done: 03/14/24 22:15 Discharge Date/Time: 03/14/24 22:23 Print Language: Nam[place]ian
[2024-03-14 14:26] LABS: Basophils Percent Auto 0.2 % (0-2); Eosinophils Percent Auto 0.1 % (0-4); Hematocrit 47.9 % (42.0-52.0); Hemoglobin 15.8 g/dl (14.0-18.0); Imm Gran Abs Auto 0.05 X10*3/uL (0.00-0.03); Imm Gran Pct Auto 0.4 % (0.0-0.4); Lymphocytes Absolute Auto 1.7 X10*3/uL (1.2-4.9); Lymphocytes Percent Auto 12.7 % (20-40); MANUAL DIFF FLAG SCAN; Mean Corpuscular Hemoglobin 28.3 pg (27.0-33.0); Mean Corpuscular Volume 85.8 fL (80.0-98.0); Mean Platelet Volume 9.4 fL (9.4-12.4); Monocytes Absolute Auto 1.8 X10*3/uL (0.1-1.2); Neutrophils Percent Auto 73.6 % (45-73); Platelet Count 344 X10*3/uL (160-400); Red Blood Count 5.58 X10*6/uL (4.60-5.80); Red Cell Distribution Width 12.7 % (11.0-16.0); SCAN SMEAR FLAG 1; White Blood Count 13.6 X10*3/uL (4.8-10.8)
[2024-03-14 14:38] LABS: INTERNATIONAL NORM RATIO 1.2 (0.9-1.1); Prothrombin Time 14.6 SEC (11.1-13.3)
[2024-03-14 14:46] LABS: SLIDE REVIEW VERIFIED
[2024-03-14 14:50] LABS: Alanine Aminotransferase 13 U/L (0-40); Albumin Level 3.8 g/dL (3.5-5.0); Alkaline Phosphatase 92 U/L (39-117); Anion Gap 17 (12-20); Aspartate Amino Transferase 18 U/L (5-37); Bilirubin Total 0.5 mg/dL (0.0-1.0); Blood Urea Nitrogen 14 mg/dL (9-16); Calcium 9.9 mg/dL (8.4-10.2); Carbon Dioxide 22 mmol/L (22-29); Chloride 104 mmol/L (96-108); Creatinine Clr Calc Pharmacy 80.8; Estimated Glomerular Filt Rate > 60; Glucose Random 116 mg/dL (60-115); Lipase 25 U/L (8-78); Potassium 3.5 mmol/L (3.3-5.1); Sodium 139 mmol/L (135-145); Total Protein 8.3 g/dL (6.5-8.0)
[2024-03-14 14:54] LABS: Troponin-I High Sensitivity 3.9 ng/L (<3.5-35.0)
[2024-03-14 15:06] LABS: Influenza A PCR NEGATIVE (Negative); Influenza B PCR NEGATIVE (Negative); Resp Syncy Virus RNA Qual PCR NEGATIVE (Negative); SARS COV2 PCR INHOUSE NEGATIVE (Negative)
[2024-03-14 18:53] VITALS: BP 141/92; PULSE 120; RESP 16; TEMP 36.9; O2SAT 98
[2024-03-14 19:39] LABS: D Dimer High Sensitivity 193 NG/ML
[2024-03-14 19:49] LABS: C Reactive Protein 10.54 mg/dL (< or = 0.50)
[2024-03-14 19:49] LABS: IDNOW Serial# 08D9AD1C; Strep A Nucleic Acid Negative (Negative)
[2024-03-14 20:22] VITALS: BP 129/80; PULSE 115; RESP 18; TEMP 36.8; O2SAT 98
[2024-03-14] MEDS: 0.9 % Sodium Chloride 1,000 ML 999 ML IV (20:43)
[2024-03-14] MEDS: iohexoL 350 MG/ML 100 ML INFUS..BTL 60 ML IV (21:05)
[2024-03-14 22:15] VITALS: BP 139/86; PULSE 103; RESP 18; TEMP 36.4; O2SAT 98
[2024-03-14] MEDS: Amoxicillin/Potassium Clav 875 MG TABLET PO (22:22)
[2024-03-14 22:41] LABS: Thyroid Stimulating Hormone < 0.01 uIU/mL (0.32-4.0)
== END 2024-03-14 22:23 | disposition home or self-care (01) ==
PROVIDERS: Physician Assistant; Emergency Provider Emergency Medicine; PCP Family Medicine
DX: J02.9 Acute pharyngitis, unspecified (principal); E05.90 Thyrotoxicosis, unspecified without thyrotoxic crisis or storm; R07.89 Other chest pain; R06.02 Shortness of breath; R22.1 Localized swelling, mass and lump, neck; Z03.818 Encounter for observation for suspected exposure to other biological agents ruled out; R00.0 Tachycardia, unspecified
CPT/HCPCS: 0241U; 70491; 71046; 80053; 83690; 84443; 84484; 85025; 85379; 85610; 86140; 87651; 93005; 99284; 99285; Q9967

== ENCOUNTER → 2024-03-14 13:54 | Outpatient (BNV) | payer MEDICAID, SELFPAY | PROVIDERS: PCP Family Medicine; Visit Provider Internal Medicine Cardiovascular Disease | DX: R00.0 Tachycardia, unspecified (principal) | CPT/HCPCS: 93010 ==

== ENCOUNTER 2025-03-27 11:04 | Outpatient (REF) | payer MEDICAID, SELFPAY ==
--- OUTSIDE RECORDS SUMMARY | 2025-03-27 12:21 | XMS_ITS | Encounter Summary ---
Author Organization [employer] Address [address] [facility] [address] [place] [address] Care Team Providers Care Casing Builder Name Role Phone Yaneli Lew MD Primary Care Provider [phone] Reason for Visit * Reason Onset Date Comments Hospital Follow-up 01/30/2025 Encounter Details Date Type Department Care Team (Late st Contact Info) Description 01/30/2025 Telephone [facility] [address], [place] [phone] Yaneli Lew MD [address] [place] [address] Hospital Follow-up Social History Tobacco Use Types Packs/Day Years Used Date Smoking Tobacco: Every Day Cigarettes 0.5 25 Smokeless Tobacco: Never Alcohol Use Standard Drinks/Week Comments Yes 0 (1 standard drink = 0.6 oz pur e alcohol) Sex and Gender Information Value Date Recorded Sex Assigned at Male 07/06/2022 10:30 AM EDT Legal Sex Male 10:30 AM EDT Gender Identity Male 07/06/2022 10:30 AM EDT Sexual Orientation Straight 07/06/2022 10 :30 AM EDT documented as of this encounter Miscellaneous Notes * Telephone Encounter - Mateo Mcgowan - 01/30/2025 3:02 PM EDT Tc from pt requesting a HDF appt. Hospital: [facility] Date of admission: 12/28/24 Discharge date: 01/04/25 Diagnosed: Thyroid , High blood pressure, elevated heart rate Contact pt sister Citlaly at [phone] documented in this encounter Plan of Treatment Upcoming Encounters Date Type Department Care Team (Late st Contact Info) Description 05/09/2025 10:30 AM EDT Office Visit [facility] [address] [place] [address] Yaneli Lew MD [address] [place] [address] documented as of this encounter Visit Diagnoses Not on filedocumented in this encounter Care Teams Casing Builder Relationship Specialty Start Date End Date Yaneli Lew MD [address] [place] [id number] PCP - General Family Medicine 07/15/20 documented as of this encounter
[2025-03-27 16:01] LABS: Free T4 (Free Thyroxine) 1.60 ng/dL (0.71-1.85)
== END 2025-03-27 11:05 | disposition home or self-care (01) ==
LOC: HO.CHCLDS 11:04
PROVIDERS: Visit Provider Student in an Organized Health Care Education/Training Program
DX: E05.81 Other thyrotoxicosis with thyrotoxic crisis or storm (principal)
CPT/HCPCS: 36415; 84439; 84443

== ENCOUNTER 2025-05-09 11:14 | Outpatient (REF) | payer MEDICAID, SELFPAY ==
[2025-05-09 14:40] LABS: Free T4 (Free Thyroxine) 2.96 ng/dL (0.71-1.85)
== END 2025-05-09 11:15 | disposition home or self-care (01) ==
LOC: HO.CHCLDS 11:14
PROVIDERS: Visit Provider Family Medicine
DX: E05.90 Thyrotoxicosis, unspecified without thyrotoxic crisis or storm (principal)
CPT/HCPCS: 36415; 84439; 84443; 84480